=== PATIENT | male | born 1975 | race African-American/Black ===

== ENCOUNTER 2018-10-25 21:34 | Emergency (ER) | payer OTHER ==
[2018-10-25] MEDS: ONDANSETRON (ODT) 4 MG TAB ODT (23:51)
[2018-10-25] MEDS: HYDROCODONE/APAP (10/325) TAB PO (23:51)
== END 2018-10-26 01:30 | disposition home or self-care (01) ==
LOC: E/R 10-26 01:30
DX: S39.012A Strain of muscle, fascia and tendon of lower back, initial encounter (principal); F07.81 Postconcussional syndrome; V86.39XA Unspecified occupant of other special all-terrain or other off-road motor vehicle injured in traffic accident, initial encounter
CPT/HCPCS: 70450; 99284-25